=== PATIENT | female | born 1955 | race Caucasian/White ===

== ENCOUNTER → 2017-06-23 11:12 | Outpatient (CLI) | payer BC | END | disposition home or self-care (01) | LOC: D.CN 10:30 | DX: Z13.6 Encounter for screening for cardiovascular disorders (principal) ==

== ENCOUNTER → 2017-09-20 14:34 | Outpatient (CLI) | payer BC | END | disposition home or self-care (01) | LOC: D.US 14:34 | DX: J32.9 Chronic sinusitis, unspecified (principal); E04.1 Nontoxic single thyroid nodule ==

== ENCOUNTER 2017-11-21 14:19 | Emergency (ER) | payer BC ==
[2017-11-21 15:02] LABS: BASOPHILS 0.2 % (0-2); EOSINOPHILS 1.6 % (0-7); HEMATOCRIT 40.7 % (36.0-48.0); HEMOGLOBIN 13.8 g/dL (12-16); IMMATURE GRANULOCYTES 0.3 % (0-5); LYMPHOCYTES 24.1 % (15-50); MCH 28.4 pg (26.0-34.0); MCHC 33.9 g/dL (31.0-37.0); MCV 83.7 fL (80.0-100.0); MEAN PLATELET VOLUME 10.5 fL (7.4-10.4); MONOCYTES 7.3 % (2-11); NEUTROPHILS 66.5 % (40-80); PLATELET COUNT 259 10x3/uL (130-400); RBC 4.86 10x6/uL (4.00-5.40); RDW 13.4 % (11.5-14.5); WBC 8.9 10x3/uL (4.8-10.8)
[2017-11-21 15:06] LABS: APPEARANCE CLEAR (CLEAR); BILIRUBIN NEGATIVE (NEGATIVE); COLOR YELLOW (YELLOW); GLUCOSE NEGATIVE (NEGATIVE); KETONE NEGATIVE (NEGATIVE); NITRITE NEGATIVE (NEGATIVE); PROTEIN NEGATIVE (NEGATIVE); SPECIFIC GRAVITY 1.025 (1.005-1.020); UROBILINOGEN NORMAL (NORMAL)
[2017-11-21 15:20] LABS: ALBUMIN 3.5 g/dL (3.4-5.0); ALKALINE PHOSPHATASE 73 U/L (46-116); ALT (SGPT) 22 U/L (10-68); BILIRUBIN - TOTAL 0.16 mg/dL (0.2-1.3); CALC OSMOLALITY 288 mosm/kg (275-300); CALCIUM 9.2 mg/dL (8.5-10.1); CARBON DIOXIDE 27.1 mmol/L (21.0-32.0); CHLORIDE - SERUM 106 mmol/L (98-107); CREATININE - SERUM 0.8 mg/dL (0.6-1.3); GLUCOSE 148 mg/dL (74-106); POTASSIUM - SERUM 3.6 mmol/L (3.5-5.1); PROTEIN - SERUM 7.1 g/dL (6.4-8.2); SODIUM 144 mmol/L (136-145); UREA NITROGEN 11 mg/dL (7-18); eGFR NON AFRICAN AMERICAN 77 mL/min (90-120)
[2017-11-21 15:23] LABS: TROPONIN-I < 0.017 ng/mL (0.000-0.060)
[2018-01-28 19:07] VITALS: BMI 35.5
== END 2017-11-21 20:14 | disposition home or self-care (01) ==
LOC: D.ER 14:19
PROVIDERS: Family Medicine
DX: E86.0 Dehydration (principal); I49.3 Ventricular premature depolarization

== ENCOUNTER 2018-01-17 07:18 | Outpatient (CLI) | payer BC ==
[~2018-01-17] VITALS: Ht 156.2 cm; Wt 88.6 kg
--- NOTE | ~2018-01-17 | OP ---
PATIENT NAME: HUAN RAJAN MEDICAL RECORD: [id number] :55 LOCATION:D.CAT ADMISSION DATE: SURGEON: SHANIA SHAW MD DATE OF OPERATION: 01/17/2018 PROCEDURES: 1. PTCA stent LAD. 2. Left heart catheterization. 3. Selective coronary angiography. 4. Left ventriculogram. INDICATION: Angina and coronary artery disease. PROCEDURE IN DETAIL: After informed consent was obtained and after a detailed description of the risks, benefits as well as alternative therapies, the patient elected to proceed with angiogram and angioplasty. The right femoral area was prepped and draped in normal sterile fashion. Right femoral artery was cannulated via modified Seldinger technique with placement of 6-Amharic sheath. All catheters exchanged through this sheath. FINDINGS: Left ventriculogram was performed in a standard 30-degree BISHOP view, reveals good cardiac wall motion throughout all segments. Overall ejection fraction estimated at 55% to 60%. SELECTIVE CORONARY ANGIOGRAPHY: 1. Left main is with no significant angiographic disease. 2. Left anterior descending has 2 areas of 75+ percent stenosis. 3. Left circumflex has moderate irregularities, but no flow-limiting stenosis. 4. Right coronary has moderate irregularities, but no flow-limiting stenosis. PTCA STENT OF THE LAD: Stents used were 2.5 x 22, 2.25 x 8, and 2.25 x 12, all Jefferson stents. Result was 0% residual stenosis. OVERALL IMPRESSION: Successful percutaneous transluminal coronary angioplasty stent of the left anterior descending going from multiple areas of greater than 75% stenosis to 0% residual. TRANSINT:[id number] Voice Confirmation ID: [id number] DOCUMENT ID: [id number] SHANIA SHAW MD at 1325 CC: [id number] DICTATION DATE: 01/17/18 1017 INSULATION MANAGER: 01/17/18 1045 DEP CLI 01/17/[address] [address]
--- NOTE | ~2018-01-17 | HEMODYNAMI ---
PATIENT:HUAN RAJAN MEDICAL RECORD: [id number] : 55 LOCATION:DLELO ADMISSION DATE: 01/17/18 Generatedon:01/17/201810:28 Patient name: HUAN RAJAN Patient #: [id number] SSN: : 1955 Date of study: 01/17/2018 Page: Of Hemodynamic Procedure Report Patient Data Patient Demographics Procedure consent was obtained First Name: HUAN Gender: Female Last Name: SATINDER : 1955 [facility] Initial: HERMAN Age: 62 year(s) Patient #: [id number] Race: Unknown Additional ID: [id number] Contact details Address: [address] [place] [address] State: [place] City: [facility] Zip code: [address] Past Medical History Allergies Allergen Reaction Date Comments Reported Demerol 01/17/2018 Other allergy 01/17/2018 Aleve, Phenergan, Celebrex Admission Admission Data Admission Date: 01/17/2018 Admission Time: 7:18 Procedure Procedure Types Cath Procedure Diagnostic Procedure [facility] w/Coronaries Sedation Charges Moderate Sedation up to 30 minutes PCI Procedure Coronary Stent Coronary Stent Initial Procedure Description Procedure Date Procedure Date: 01/17/2018 Procedure Start Time: 9:39 Procedure End Time: 10:17 Procedure Staff Name Function Aniya Ca RT Monitor Sam Julien RN Road Worker Dalton Reyes RN Nurse Marques Arthur MD Performing Physician Fer Dalal RT Scrub Procedure Data Cath Procedure Fluoroscopy Diagnostic fluoroscopy Total fluoroscopy Time: time: 13.1 min 13.1 min Diagnostic fluoroscopy Total fluoroscopy dose: dose: 1254 mGy 1254 mGy Contrast Material Contrast Material Type Amount (ml) Isovue 300 164 Entry Location Entry Primary Successful Side Size Upsize Upsize Entry Closure Jefferson ccessful Closure Location (Fr) 1 (Fr) 2 (Fr) Remarks Device Remarks Radial Right 6 Fr Mechanical artery Short Compression Femoral Right 6 Fr Exoseal artery Short Estimated blood loss: 10 ml Diagnostic catheters Device Type Used For End Catheter Placement DIAGNOSTIC [place] 110cm 5 LV Angiography Fr catheter ([id number]) DIAGNOSTIC [place] 110cm 5 Right Coronary Fr catheter (943541) Angiography DIAGNOSTIC JL 3.5 5Fr Left Coronary catheter ([id number]) Angiography DIAGNOSTIC Beto 110cm Left Coronary 5Fr catheter (147245) Angiography DIAGNOSTIC AL 1 5Fr Left Coronary catheter ([id number]) Angiography Procedure Complications No complications Procedure Medications Medication Administration Route Dosage Oxygen NC 2 l/min Lidocaine 2% added to field 20 Heparin Flush Bag added to field 2 bags (1000units/500ml NS) 0.9% NaCl I.V. 100 ml/hr Radial Cocktail I.A. 1 syringe (Verapomil 2mg/Nitro 400mcg/Heparin 1500units) Versed I.V. 1 mg Fentanyl I.V. 50 mcg Versed I.V. 1 mg Fentanyl I.V. 50 mcg Radial Cocktail I.A. 1 syringe (Verapomil 2mg/Nitro 400mcg/Heparin 1500units) Versed I.V. 1 mg Fentanyl I.V. 50 mcg Versed I.V. 1 mg Fentanyl I.V. 50 mcg Heparin Bolus I.V. 4000 units Nitroglycerin IC/IA I.C. 200 mcg Nitroglycerin IC/IA I.C. 200 mcg Fentanyl I.V. 50 mcg Hemodynamics Rest Heart Rate: 52 (bpm) Snapshots Pre Cath Intra NCS Post Cath Vital Signs Time Heart Resp SPO2 etCO2 NIBP (mmHg) Rhythm Pain Sedation Rate (ipm) (%) (mmHg) Status Level (bpm) 9:31:06 53 15 99 37.5 135/70(127) NSR 0 (11) 10(A) , No pain 9:35:29 55 29 96 30 117/71(96) NSR 0 (11) 10(A) , No pain 9:39:41 53 18 98 30.7 135/78(117) NSR 0 (11) 10(A) , No pain 9:44:03 56 14 99 28.5 150/70(115) NSR 0 (11) 9(A) , No pain 9:48:23 67 16 98 31.5 135/70(104) NSR 0 (11) 9(A) , No pain 9:52:41 59 14 93 15.7 139/72(111) NSR 0 (11) 9(A) , No pain 9:57:03 55 12 98 21.7 137/67(126) NSR 0 (11) 9(A) , No pain 10:01:23 58 15 98 20.2 148/68(108) NSR 0 (11) 9(A) , No pain 10:05:43 64 16 98 23.2 138/64(108) NSR 0 (11) 9(A) , No pain 10:10:05 65 17 99 31.5 139/71(110) NSR 0 (11) 9(A) , No pain 10:14:28 59 16 98 31.5 147/68(116) NSR 0 (11) 10(A) , No pain Medications Time Medication Route Dose Verified Delivered Reason Note s Effectiveness by by 9:36:38 Oxygen NC 2 l/min Marques Buffie used for Jerson Reyes RN procedure 9:36:45 Lidocaine 2% added 20ml Marques Mohan for local to vial Jerson Arthur MD anesthetic field 9:36:51 Heparin Flush added 2 bags Marques Mohan used for Bag to Jerson Arthur MD procedure (1000units/500ml field NS) 9:37:00 0.9% NaCl I.V. 100 Marquessunil Hoffman Per physician ml/hr Jerson Reyes RN 9:37:14 Versed I.V. 1 mg Marques Hoffman for sedation Jerson Reyes RN 9:37:20 Fentanyl I.V. 50 mcg Marques Hoffman for sedation Jerson Reyes RN 9:41:06 Radial Cocktail I.A. 1 Marques Mohan for (Verapomil syringe Jerson Arthur MD vasodilation 2mg/Nitro 400mcg/Hepari 9:41:45 Versed I.V. 1 mg Marques Hoffman for sedation Jerson Reyes RN 9:41:49 Fentanyl I.V. 50 mcg Marques Pinedaie for sedation Jerson Reyes RN 9:46:23 Radial Cocktail I.A. 1 Marques Mohan for seco nd (Verapomil syringe Jerson Arthur MD vasodilation radial 2mg/Nitro cocktail 400mcg/Hepari used 9:48:58 Versed I.V. 1 mg Marques Mohan for sedation Jerson Arthur MD 9:49:01 Fentanyl I.V. 50 mcg Marques Mohan for sedation Jerson Arthur MD 9:49:05 Versed I.V. 1 mg Marques Mohan for sedation Jerson Arthur MD 9:55:05 Fentanyl I.V. 50 mcg Marques Mohan for sedation Jerson Arthur MD 9:56:47 Heparin Bolus I.V. 4000 Marques Hoffman for veri fied units Jerson Reyes RN anticoagulation with dr arthur 9:56:55 Nitroglycerin I.C. 200 mcg Marques Mohan for IC/IA Jerson Arthur MD vasodilation 10:05:28 Nitroglycerin I.C. 200 mcg Marques Mohan for IC/IA Jerson Arthur MD vasodilation 10:26:59 Fentanyl I.V. 50 mcg Dalton for anxiety cookie Reyes RN for pain during radial sheath pull. Procedure Log Time Note 8:51:03 Time tracking: Regular hours (M-F 7:00 - 5:00) 8:51:07 Plan of Care:Hemodynamics will remain stable., Cardiac rhythm will remain stable., Comfort level will be maintained., Respiratory function will remain adequate., Patient/ family verbilizes understanding of procedure., Procedure tolerated without complication., Recovers from procedure without complications.. 8:59:33 Jose F Newman RT(R) was relieved by Aniya Ca RT(R) as monitoring person 9:00:02 Dalton Reyes RN sent for patient. Start room use. 9:15:25 Patient received from Pre/Post Procedure Room to CCL 2 Alert and oriented. Tansferred to table in Supine position. 9:15:26 Correct patient and procedure confirmed by team. 9:15:26 Warm blankets applied, and emely hugger turned on for patient comfort. 9:15:27 Signed procedure consent form obtained from patient. 9:15:28 Full Disclosure recording started 9:15:28 ECG and BP/O2 sat monitors applied to patient. 9:26:41 Vital chart was started 9:29:13 CHOICE PT ES wire advanced. 9:31:47 IV left forearm D/C'd due to infiltration. 9:32:00 IV started by Dalton Reyes RN inleft hand with a 22 gauge IV catheter with 0.9% NaCl at KVO. 9:32:09 Baseline sample Acquired. 9:32:14 Rhythm: sinus bradycardia 9:32:27 H&P Date Dictated: 01/16/2018 Within 30 days and on chart., H&P Addendum completed by physician on day of procedure. (MUST COMPLETE FOR ALL OUTPATIENTS). 9:32:28 Pre-op teaching completed and patient verbalized understanding. 9:32:28 Pre-procedure instructions explained to patient. 9:32:29 Family in patients room. 9:32:31 Patient NPO since Midnight. 9:32:39 Patient allergic to Demerol 9:33:03 Patient allergic to Other allergyAleve, Phenergan, Celebrex 9:33:06 Is the patient allergic to Iodine/contrast media? No. 9:33:07 Is patient on blood thinner?Yes 9:33:09 ACC The patient was administered the following blood thiners within the last 24 hours: ACCPlavix 9:33:13 Patient diabetic? No. 9:33:30 Previous problem with sedation/anesthesia? No ? 9:33:31 Snore? No 9:33:32 Sleep apnea? No 9:33:34 Deviated septum? No 9:33:35 Opens mouth fully? Yes 9:33:36 Sticks out tongue? Yes 9:33:38 Airway obstruction? Yes CHRONIC BRONCHITIS 9:33:53 Dentures? No ? 9:33:57 Pre procedure: right dorsailis pedis pulse 2+ Normal; easily identifiable; not easily obliterated 9:33:58 Modified Herson's test Ulnar < 7 seconds 9:34:00 Patient pain scale 0/10 ?. 9:34:03 Lab results completed and on chart. 9:34:06 Right Radial & Right Groin area was prepped with chlora-prep and draped in sterile fashion 9:34:07 Sharps counted by scrub and verified by R.N. 9:34:07 Alarms reviewed by R. N. 9:34:10 Use device set Radial Dx or PCI 9:34:11 ACIST Syringe (26737) opened to sterile field. 9:34:12 Bag Decanter (2002) opened to sterile field. 9:34:12 Medline Cath Pack ([id number]) opened to sterile field. 9:34:13 ACIST Hand Control (26953) opened to sterile field. 9:34:13 DIAGNOSTIC WIRE .035 260cm J wire (233570) opened to sterile field. 9:34:14 Tegaderm 4 x 4 (1626W) opened to sterile field. 9:34:14 ACIST Manifold (97041) opened to sterile field. 9:34:15 MBrace Wrist Support ([id number]) opened to sterile field. 9:34:16 SHEATH 6Fr Prelude Radial ([id number]) opened to sterile field. 9:35:56 Final Timeout: patient, procedure, and site verified with staff and physician. All members of the team are in agreement. 9:35:59 Right Radial site verified by team. 9:36:01 Physical assessment completed. ASA score P 2 - A patient with mild systemic disease as per Marques Arthur MD. 9:36:03 Sedation plan: IV Moderate Sedation Medication:Versed, Fentanyl 9:36:38 Oxygen 2 l/min NC was administered by Dalton Reyes RN; used for procedure; 9:36:45 Lidocaine 2% 20ml vial added to field was administered by Marques Arthur MD; for local anesthetic; 9:36:51 Heparin Flush Bag (1000units/500ml NS) 2 bags added to field was administered by Marques Arthur MD; used for procedure; 9:37:00 0.9% NaCl 100 ml/hr I.V. was administered by Dalton Reyes RN; Per physician; 9:37:14 Versed 1 mg I.V. was administered by Dalton Reyes RN; for sedation; 9:37:20 Fentanyl 50 mcg I.V. was administered by Dalton Reyes RN; for sedation; 9:39:31 Zero performed for pressure channel P1 9:39:47 Procedure started. 9:39:51 Local anesthetic to right radial artery with Lidocaine 2% by Marques Arthur MD.INITIAL ACCESS ONLY 9:40:09 A 6 Fr Short sheath was inserted into the Right Radial artery 9:41:06 Radial Cocktail (Verapomil 2mg/Nitro 400mcg/Heparin 1500units) 1 syringe I.A. was administered by Marques Arthur MD; for vasodilation; 9:41:45 Versed 1 mg I.V. was administered by Dalton Reyes RN; for sedation; 9:41:49 A DIAGNOSTIC [place] 110cm 5 Fr catheter (716247) was advanced over the wire and used for LV Angiography. 9:41:49 Fentanyl 50 mcg I.V. was administered by Daltno Reyes RN; for sedation; 9:42:15 LV gram done using BISHOP 9:42:22 Injector settings: Ml/sec: 5, Volume: 15, 9:42:36 A DIAGNOSTIC [place] 110cm 5 Fr catheter (578803) was advanced over the wire and used for Right Coronary Angiography. 9:43:59 GUIDE 6FR XBLAD 3.5 catheter ([id number]) opened to sterile field. 9:44:06 Catheter removed. 9:44:12 6 Fr EBU 3.5 guide catheter was inserted over the wire 9:46:23 Radial Cocktail (Verapomil 2mg/Nitro 400mcg/Heparin 1500units) 1 syringe I.A. was administered by Marques Arthur MD; for vasodilation; second radial cocktail used 9:48:04 GUIDE REMOVED UNABLE TO ADVANCE UP ARM 9:48:39 A DIAGNOSTIC JL 3.5 5Fr catheter ([id number]) was advanced over the wire and used for Left Coronary Angiography. REMOVED, UNABLE TO CANNULATE 9:48:58 Versed 1 mg I.V. was administered by Marques Arthur MD; for sedation; 9:49:01 Fentanyl 50 mcg I.V. was administered by Marques Arthur MD; for sedation; 9:49:05 Versed 1 mg I.V. was administered by Marques Arthur MD; for sedation; 9:49:35 A DIAGNOSTIC Beto 110cm 5Fr catheter (581242) was advanced over the wire and used for Left Coronary Angiography. REMOVED, UNABLE TO CANNULATE 9:52:54 A DIAGNOSTIC AL 1 5Fr catheter ([id number]) was advanced over the wire and used for Left Coronary Angiography. 9:53:52 Use device set [facility] PCI 9:53:54 SHEATH Prelude 6Fr 0.035 (FUN-2U-75-035) opened to sterile field. 9:53:57 INFLATOR Merit BasixCompak (ZA7609) opened to sterile field. 9:54:02 CHOICE PT Extra Support 182cm wire ([id number]) opened to sterile field. 9:54:17 Catheter removed. 9:54:24 Local anesthetic to right femoral artery with Lidocaine 2% by Marques Arthur MD.ADDITIONAL ACCESS 9:55:05 Fentanyl 50 mcg I.V. was administered by Marques Arthur MD; for sedation; 9:56:04 A 6 Fr Short sheath was inserted into the Right Femoral artery 9:56:12 6 Fr XBLAD 3.5 guide catheter was inserted over the wire 9:56:47 Heparin Bolus 4000 units I.V. was administered by Dalton Reyes RN; for anticoagulation; verified with dr arthur 9:56:55 Nitroglycerin IC/IA 200 mcg I.C. was administered by Marques Arthur MD; for vasodilation; 9:57:35 CHOICE PT Extra Support J 300cm guide wire ([id number]) opened to sterile field. 10:00:23 Place stent Inflation Number: 1 A JESS OTW 2.25 x 12 stent ([id number]) was prepped and advanced across the Dist LAD. The stent was deployed at 13 NATANAEL for 0:11 (min:sec). 10:01:05 Stent catheter was removed intact over wire. 10:01:06 Wire removed. 10:02:41 Place stent Inflation Number: 1 A JESS OTW 2.5 x 22 stent ([id number]) was prepped and advanced across the Prox LAD. The stent was deployed at 11 NATANAEL for 0:07 (min:sec). 10:05:09 Inflation number: 2 The stent balloon was then re-inflated across the Dist LAD to 2 NATANAEL for 0:26 (min:sec). 10:05:28 Nitroglycerin IC/IA 200 mcg I.C. was administered by Marques Arthur MD; for vasodilation; 10:07:52 Stent catheter was removed intact over wire. 10:10:04 Place stent Inflation Number: 3 A JESS OTW 2.25 x 08 stent ([id number]) was prepped and advanced across the Dist LAD. The stent was deployed at 11 NATANAEL for 0:07 (min:sec). 10:10:55 Stent catheter was removed intact over wire. 10:10:56 Guide catheter removed. 10:10:56 Wire removed. 10:11:08 Sheath removed intact; hemostasis achieved with Exoseal to the Right Femoral artery. 10:11:16 Post-op/insertion site Right Femoral artery dressed using a 4 x 4 and Tegaderm. 10:11:20 Post right femoral artery:stable, clean and dry 10:11:29 Sheath removed intact; hemostasis achieved with Mechanical Compression to the Right Radial artery. 10:11:35 Post right radial artery:stable, clean and dry 10:11:37 Procedure ended.(Physican Out) 10:11:47 Fluoroscopy time 13.10 minutes. 10:11:50 Fluoroscopy dose: 1254 mGy 10:11:50 Flurop Dose total: 1254 10:12:01 Contrast amount:Isovue 300 164ml. 10:12:03 Sharps counted by scrub and verified by R.N. 10:12:04 Insertion/operative site no bleeding no hematoma. 10:12:06 Post Procedure Pulses reassessed and unchanged 10:12:09 Post-procedure physical assessment completed. ASA score P 2 - A patient with mild systemic disease as per Marques Arthur MD. 10:12:11 Post procedure rhythm: unchanged. 10:12:15 Estimated blood loss: 10 ml 10:12:16 Post procedure instruction explained to patient.Patient verbalizes understanding. 10:12:17 Patient needs reinforcement of post procedure teaching. 10:12:51 Procedure type changed to Cath procedure, Diagnostic procedure, LHC, LHC w/Coronaries, Sedation Charges, Moderate Sedation up to 30 minutes, PCI procedure, Coronary Stent, Coronary Stent Initial 10:12:53 See physician's report for complete and final results. 10:12:59 Procedure Complication : No complications 10:13:11 EXOSEAL 6Fr (EX600) opened to sterile field. 10:13:13 TR BAND Standard ([id number]) opened to sterile field. 10:13:24 Tegaderm 4 x 4 (1626W) opened to sterile field. 10:14:57 IV CATHETER 22g opened to sterile field. 10:16:27 Procedure and supply charges have been captured, reviewed, submitted and are correct. 10:17:14 Vital chart was stopped 10:17:16 Report given to Pre/Post Procedure Room. 10:17:17 Patient transfered to Pre/Post Procedure Room with Stretcher. 10:17:24 Full Disclosure recording stopped 10:17:24 Procedure ended. 10:17:28 End room use (Document Last) 10:26:59 Fentanyl 50 mcg I.V. was administered by Buffie Reyes RN; for anxiety; given for pain during radial sheath pull. Intervention Summary Intervention Notes Time ActionType Lesion and Equipment Action# Pressure Duration Attributes Used 10:00:23 Place stent Dist LAD JESS OTW 2.25 1 13 00:11 x 12 stent ([id number]) 10:02:41 Place stent Prox LAD JESS OTW 2.5 1 11 00:08 x 22 stent ([id number]) 10:05:09 Reinflate Dist LAD JESS OTW 2.5 2 2 00:26 stent x 22 stent balloon ([id number]) 10:10:04 Place stent Dist LAD JESS OTW 2.25 3 11 00:07 x 08 stent ([id number]) Device Usage Item Name Manufacture Quantity Catalog Number Hospital Part Current Minimal Lot# / Charge Number Stock Stock Serial# Code ACIST Syringe Acist 1 99744 829057 701268 851999 20 (92111) Medical Systems Inc Medline Cath Cardinal 1 [id number] 091635 40132 431102 5 Pack SnapRetail ([id number]) Bag Decanter Microtek 1 2001S 084378 79461 933092 5 (2001S) Medical Inc. DIAGNOSTIC WIRE St Joseluis 1 082842 886690 132677 605960 30 .035 260cm J wire (328600) ACIST Hand Acist 1 02601 258619 051359 641442 5 Control (14221) [employer] Inc ACIST Manifold Acist 1 11860 128532 798537 365423 5 (95043) Medical Systems Inc Tegaderm 4 x 4 3M 2 1626W 169172 118347 065269 5 (1626W) MBrace Wrist Advanced 1 140-0250-00 208623 10340 596455 5 Support Vascular (397547547) Dynamics SHEATH 6Fr Merit 1 [id number] 683108 527598 076573 5 Prelude Radial Medical ([id number]) DIAGNOSTIC Terumo 1 61-7496 310634 063814 618790 5 [place] 110cm 5 Fr catheter (897245) GUIDE 6FR XBLAD Cardinal 1 65114131 406678 441334 338476 10 3.5 catheter Health (98376324) DIAGNOSTIC JL Cardinal 1 [id number] 733231 410528 218983 5 3.5 5Fr Health catheter (192576C) DIAGNOSTIC Terumo 1 40-7318 886945 588386 254797 5 Beto 110cm 5Fr catheter (759876) DIAGNOSTIC AL 1 Cardinal 1 [id number] 089386 740065 174030 15 5Fr catheter Health (167718R) SHEATH Prelude Merit 1 [id number] 785990 2342198 469373 5 6Fr 0.035 Medical (RJJ-3A-16-035) INFLATOR Merit Merit 1 [id number] 441143 396058 855721 15 BasixCompak Medical (ES1978) CHOICE PT Extra [place] 1 [id number] 903069 024996 803373 5 Support 182cm Scientific wire (2529021D7) CHOICE PT Extra [place] 1 [id number] 728880 645108 510460 5 Support J 300cm Scientific guide wire (3058079W0) JESS OTW 2.25 x Medtronic 1 [id number] 658412 12041 822686 5 [id number] 12 stent ([id number]) JESS OTW 2.5 x Medtronic 1 [id number] 532816 23150 609889 5 [id number] 22 stent ([id number]) JESS OTW 2.25 x Medtronic 1 [id number] 320644 93784 222928 5 [id number] 08 stent ([id number]) EXOSEAL 6Fr Cardinal 1 EX600 257205 754481 538141 10 (EX600) Health TR BAND Terumo 1 [id number] 778817 341685 836637 40 Standard ([id number]) IV CATHETER 22g B. Larose 1 [id number] 696380 325884 107573 5 Signature Audit Dickinson Stage Time Signature Unsigned Intra-Procedure 01/17/2018 Aniya Kwan Counts 10:17:40 AM Counts RT(R) RT(R) 01/17/2018 10:26:50 AM Intra-Procedure 01/17/2018 Aniya 10:28:07 AM Counts RT(R) Signatures Monitor : Aniya Signature : Counts RT Date : Time : [place] [address] [place] [address]
[2018-01-17] MEDS ORDERED: PLAVIX75 MG PO (07:40)
[2018-01-17] MEDS ORDERED: OMEPRAZOLE CAP 20M (07:40)
[2018-01-17] MEDS ORDERED: ZANAFLEX4 MG PO (07:42)
[2018-01-17] MEDS ORDERED: PRILOSEC2.5 MG (07:43)
[2018-01-17] MEDS ORDERED: BISOPROLOL-HCT1 EAC1 PO (07:44)
[2018-01-17] MEDS ORDERED: TIROSINT13 MCG PO (07:48)
[2018-01-17 08:04] LABS: BASOPHILS 0.4 % (0-2); EOSINOPHILS 5.2 % (0-7); HEMATOCRIT 42.2 % (36.0-48.0); HEMOGLOBIN 14.2 g/dL (12-16); IMMATURE GRANULOCYTES 0.2 % (0-5); LYMPHOCYTES 39.8 % (15-50); MCH 28.6 pg (26.0-34.0); MCHC 33.6 g/dL (31.0-37.0); MCV 84.9 fL (80.0-100.0); MEAN PLATELET VOLUME 10.6 fL (7.4-10.4); MONOCYTES 12.5 % (2-11); NEUTROPHILS 41.9 % (40-80); PLATELET COUNT 233 10x3/uL (130-400); RBC 4.97 10x6/uL (4.00-5.40); RDW 13.7 % (11.5-14.5)
[2018-01-17 08:06] VITALS: BP 192/88; Ht 156.2 cm; Wt 88.6 kg
[2018-01-17 08:14] LABS: CALC OSMOLALITY 278 mosm/kg (275-300); CALCIUM 8.5 mg/dL (8.5-10.1); CARBON DIOXIDE 26.5 mmol/L (21.0-32.0); CHLORIDE - SERUM 103 mmol/L (98-107); CREATININE - SERUM 0.7 mg/dL (0.6-1.3); GLUCOSE 115 mg/dL (74-106); POTASSIUM - SERUM 4.4 mmol/L (3.5-5.1); SODIUM 139 mmol/L (136-145); UREA NITROGEN 13 mg/dL (7-18); eGFR NON AFRICAN AMERICAN 90 mL/min (90-120)
== END 2018-01-17 14:25 | disposition home or self-care (01) ==
LOC: D.CATH 07:18
PROVIDERS: Internal Medicine Interventional Cardiology
DX: I25.119 Atherosclerotic heart disease of native coronary artery with unspecified angina pectoris (principal); Z01.812 Encounter for preprocedural laboratory examination

== ENCOUNTER 2018-01-28 18:59 | Emergency (ER) | payer BC ==
[~2018-01-28] VITALS: Ht 156.2 cm; Wt 86.8 kg
[~2018-01-28 18:59] MED LIST: BISOPROLOL-HCT1 EAC1 PO; OMEPRAZOLE CAP 20M; PLAVIX75 MG PO; PRILOSEC2.5 MG; TIROSINT13 MCG PO; ZANAFLEX4 MG PO
[2018-01-28 19:07] VITALS: Ht 156.2 cm; Wt 86.8 kg
[2018-01-28 20:14] VITALS: BP 196/61
== END 2018-01-28 20:15 | disposition home or self-care (01) ==
LOC: D.ER 18:59
DX: S50.12XA Contusion of left forearm, initial encounter (principal); X58.XXXA Exposure to other specified factors, initial encounter; Y93.89 Activity, other specified; Y92.89 Other specified places as the place of occurrence of the external cause; I10 Essential (primary) hypertension; E07.9 Disorder of thyroid, unspecified